=== PATIENT | female | born 1955 | race Caucasian/White ===

== ENCOUNTER → 2018-08-21 | Outpatient (CLI) | payer BC ==
[~2018-08-21] MED LIST: REGADENOSON 0.4 MG/5 ML DISP.SYRIN. IV ONE
--- NOTE | 2018-08-21 11:55 | PCVCIMAG ---
APPROVED REPORT Study performed: 08/21/2018 07:40:24 EXAM: Comprehensive 2D, Doppler, and color-flow Echocardiogram Patient Location: Echo lab Status: routine BSA: 1.90 HR: 91 bpmBP: 110/80 mmHg Rhythm: NSR Other Information Study Quality: Adequate Risk Factors: Cardiac Risk Factors: HTN Indications Chest Pain 2D Dimensions IVSd: 10.48 (7-11mm)LVOT Diam: 19.15 (18-24mm) LVDd: 35.40 mm PWd: 11.81 (7-11mm)Ascending Ao: 33.37 (22-36mm) LVDs: 26.94 (25-40mm) Left Atrium: 32.76 (27-40mm) Aortic Root: 22.59 mm LV Single Plane 4CH: 54.56 % LV Single Plane 2CH: 64.19 % Biplane EF: 60.3 % Volumes Left Atrial Volume (Systole) Single Plane 4CH: 20.30 mLSingle Plane 2CH: 33.39 mL Aortic Valve AoV Peak Joseph.: 1.56 m/s AO Peak Gr.: 9.71 mmHgLVOT Max P.89 mmHg LVOT Max V: 0.99 m/s PADMA Vmax: 1.82 cm2 Mitral Valve E/A Ratio: 0.6 MV Decel. Time: 175.25 ms MV E Max Joseph.: 0.50 m/s MV A Joseph.: 0.90 m/s MV PHT: 50.82 ms IVRT: 107.27 ms Pulmonary Valve PV Peak Gr.: 1.48 mmHg Pulmonary Vein P Vein S: 0.49 m/sP Vein A: 0.43 m/s P Vein D: 0.31 m/sP Vein A Dur.: 76.1 msec P Vein S/D Ratio: 1.58 Left Ventricle The left ventricle is normal size. There is normal LV segmental wall motion. There is normal left ventricular wall thickness. Left ventricular systolic function is normal. The left ventricular ejection fraction is within the normal range. LVEF is 60-65%. Grade I - abnormal relaxation pattern. Right Ventricle The right ventricle is normal size. The right ventricular systolic function is normal. Atria The left atrium size is normal. The right atrium size is normal. Aortic Valve The aortic valve is normal in structure. No aortic regurgitation is present. There is no aortic valvular stenosis. Mitral Valve The mitral valve is normal in structure. There is no mitral valve regurgitation noted. No evidence of mitral valve stenosis. Tricuspid Valve The tricuspid valve is normal in structure. There is no tricuspid valve regurgitation noted. Pulmonic Valve The pulmonary valve is normal in structure. There is no pulmonic valvular regurgitation. Great Vessels The aortic root is normal in size. IVC is normal in size and collapses >50% with inspiration. Pericardium There is no pericardial effusion. <Conclusion> The left ventricle is normal size. LVEF is 60-65%. The aortic valve is normal in structure. The mitral valve is normal in structure. The pulmonary valve is normal in structure. The aortic root is normal in size. There is no pericardial effusion.
--- NOTE | 2018-08-21 13:46 | PCVCIMAG ---
APPROVED REPORT Imaging Protocol: Rest Tc-99m/Stress Tc-99m 1 day Study performed: 08/21/2018 08:30:07 Indication: Chest pain Patient Location: Out-Patient Stress Nurse: Sandi Pichardo RN DE Tech:Stephania VENKATA ChanMT Ht: 5 ft 4 in Wt: 196 lbs BSA: 1.94 m2 HR: 110 bpm BP: 118/74 mmHg BMI: 33.63 Rhythm: Sinus Tachycardia Medical History Medical History: HTN, Former Smoker, Age Medications: Aspirin, Lisinopril, HCTZ, K-DUR Allergies: No known drug allergies Pretest Chest Pain Characteristics: No chest pain Exercise History: Sedentary Physical Disabilities: Knees Resting Data Rest SPECT myocardial perfusion imaging was performed in supine position 45 minutes following the intravenous injection of 9.9 mCi of Tc-99m Sestamibi. Time of rest injection: 0830 Date: 08/21/2018 Administration Route: IV Administration Site: Left AC Pharmacologic Stress Pharmacologic stress test was performed by injecting Regadenoson 0.4 mg IV push over 10-15 seconds immediately followed by the intravenous injection of 33.2 mCi of Tc-99m Sestamibi. Time of stress injection: 1000 Date: 08/21/2018 Administration Route: IV Administration Site: Left AC Gated Stress SPECT was performed 45 minutes after stress injection. The images were gated to evaluate regional wall motion and calculate left ventricular ejection fraction. Stress Test Details Stress Test: Pharmacologic stress was paired with low level exercise. Reason for pharmacologic stress test: physical limitation, knees. HRMax Heart Rate (APMHR): 156 bpm Resting HR: 110 bpmTarget HR (85% APMHR): 132 bpm Max HR Achieved: 153 bpm % of APMHR: 98 Recovery HR: 113 bpm HR response to stress: Accelerated HR response to stress BP Resting BP: 118/74 mmHg Recovery BP: 103/62 mmHg ECG Resting ECG: Sinus Tachycardia, , Clear Stress ECG: Sinus Tachycardia Recovery ECG: Sinus Tachycardia Clinical Reason for Termination: Completed protocol Stress Symptoms: Lightheaded Exercise duration: 4 min 00 sec Exercise capacity: 1.6 METs Symptoms resolved during recovery. Stress ECG Conclusion 1. Adequate response to intravenous Lexiscan 2. Inadequate heart refrain ECG diagnosis Study Data Post stress, the left ventricular ejection was 73%.. SSS: 1 SRS: 5 SDS: 0 TID = 0.62. Perfusion There is a small area of severely reduced uptake in the apical segment of the apex and surrounding wall which is seen on the stress images as well as the resting images. This area thickens and moves normally and is most consistent with attenuation artifact. Wall Motion Normal left ventricular wall motion. Nuclear Conclusion ECG Findings: non-diagnostic Clinical Findings: negative for ischemia Nuclear Findings: negative for ischemia Exercise Capacity: not assessed Left Ventricular Function: normal 1. Low risk study <Conclusion> 1. Adequate response to intravenous Lexiscan 2. Inadequate heart refrain ECG diagnosis
== END | disposition home or self-care (01) ==
LOC: PCVCIMAG 08:56
PROVIDERS: ATTEND Internal Medicine
DX: I10 Essential (primary) hypertension (principal); R07.9 Chest pain, unspecified; Z87.891 Personal history of nicotine dependence
CPT/HCPCS: 78452; 93017; 93306; A9500; J2785